=== PATIENT | male | born 1985 | race Caucasian/White ===

== ENCOUNTER 2021-12-15 13:52 | Emergency (ER) | payer MEDICAID, MEDICARE ==
[~2021-12-15] VITALS: Ht 188 cm; Wt 84.0 kg
[2021-12-15] MEDS ORDERED: ALBU6.7H9 INH (15:40)
[2021-12-15] MEDS ORDERED: BUDE180A INH (15:40)
== END 2021-12-15 15:57 | disposition home or self-care (01) ==
LOC: ER 13:53
DX: J06.9 Acute upper respiratory infection, unspecified (principal); Z20.822 Contact with and (suspected) exposure to COVID-19; F17.200 Nicotine dependence, unspecified, uncomplicated; Z72.89 Other problems related to lifestyle; Z79.899 Other long term (current) drug therapy
CPT/HCPCS: 36415; 99283; U0003

== ENCOUNTER 2022-04-09 12:55 | Emergency (ER) | payer MEDICAID ==
[~2022-04-09] VITALS: Ht 188 cm; Wt 84.1 kg
[~2022-04-09 12:55] MED LIST: ALBU6.7H9 INH; BUDE180A INH
[2022-04-09] MEDS ORDERED: PENICILLIN G BENZATHINE 2,400,000 UNIT/4 ML SYRINGE IM ONE (14:50)
[2022-04-09] MEDS ORDERED: azithromycin 250mg tablet PO ONE (14:50)
[2022-04-09] MEDS ORDERED: CefTRIAXone 500MG IM Kit w/LIDOcaine IM ONE (14:50)
[2022-04-09] MEDS ORDERED: DOXY-1 PO (14:55)
[2022-04-09] MEDS ORDERED: CefTRIAXone 1000mg IM Kit (w/lidocaine diluent) IM ONE (15:05)
[2022-04-09 15:40] VITALS: BP 117/92
== END 2022-04-09 15:42 | disposition home or self-care (01) ==
LOC: ER 12:56
DX: A64 Unspecified sexually transmitted disease (principal); Z72.89 Other problems related to lifestyle; Z79.2 Long term (current) use of antibiotics; Z79.899 Other long term (current) drug therapy
CPT/HCPCS: 36415; 86592; 87491; 87591; 96372; 99284; J0561; J0696

== ENCOUNTER 2022-08-19 16:58 | Emergency (ER) | payer MEDICAID ==
[~2022-08-19] VITALS: Ht 188 cm; Wt 86.4 kg
[~2022-08-19 16:58] MED LIST changes: +ALBU6.7H14 INH; -ALBU6.7H9 INH
[2022-08-19 17:04] VITALS: BP 141/72
[2022-08-19] MEDS ORDERED: CefTRIAXone 1000mg IM Kit (w/lidocaine diluent) IM STA (18:09)
[2022-08-19] MEDS ORDERED: PENICILLIN G BENZATHINE 2,400,000 UNIT/4 ML SYRINGE IM STA (18:09)
[2022-08-19] MEDS ORDERED: azithromycin 250mg tablet PO ONE (18:10)
[2022-08-19] MEDS ORDERED: DOXY-1 PO ×3 (18:21→19:07)
== END 2022-08-19 19:28 | disposition home or self-care (01) ==
LOC: ER 17:00
DX: A53.9 Syphilis, unspecified (principal); A74.9 Chlamydial infection, unspecified
CPT/HCPCS: 36415; 86592; 86780; 87491; 87591; 96372; 99284; J0561; J0696

== ENCOUNTER 2023-09-25 09:46 | Emergency (ER) | payer MEDICAID ==
[~2023-09-25] VITALS: Ht 188 cm; Wt 84.5 kg
[~2023-09-25 09:46] MED LIST changes: +DOXY-1 PO
[2023-09-25 09:52] VITALS: BP 119/78; PULSE 82; RESP 16; TEMP 97.7; O2SAT 99
[2023-09-25] MEDS ORDERED: POLOS LEFTEYE (09:59)
== END 2023-09-25 10:20 | disposition home or self-care (01) ==
LOC: ER 09:47
DX: H10.9 Unspecified conjunctivitis (principal); Z72.89 Other problems related to lifestyle; Z98.890 Other specified postprocedural states; Z79.899 Other long term (current) drug therapy
CPT/HCPCS: 99284

== ENCOUNTER 2023-11-16 09:56 | Emergency (ER) | payer MEDICAID ==
[~2023-11-16] VITALS: Ht 185.4 cm; Wt 86.9 kg
[2023-11-16] MEDS ORDERED: CEFD300C3 PO (11:31)
[2023-11-16 11:40] VITALS: BP 115/79; PULSE 93; RESP 17; TEMP 99.5; O2SAT 99
== END 2023-11-16 12:30 | disposition home or self-care (01) ==
LOC: ER 09:56
DX: J40 Bronchitis, not specified as acute or chronic (principal); F20.9 Schizophrenia, unspecified; Z79.899 Other long term (current) drug therapy
CPT/HCPCS: 99283

== ENCOUNTER 2024-03-28 23:38 | Emergency (ER) | payer MEDICAID ==
[~2024-03-28] VITALS: Ht 185.4 cm; Wt 84.6 kg
[2024-03-28 23:41] VITALS: BP 112/61; TEMP 97.6
[2024-03-29] MEDS: normal saline 1000ml 1,000 ML IV ONE (00:15)
[2024-03-29] MEDS: ceFAZolin/D5W- 1GM premix 50 ML IV ONE (00:15)
[2024-03-29] MEDS: ondansetron/PF 4mg/2ml inj IV ONE (00:24)
[2024-03-29] MEDS: morphine 4 MG/ML inj SYRINge IV ONE (00:24)
[2024-03-29] MEDS: TETanus/Pertussis (Acell)/Diphther VAC/PF (Tdap-Adult) 0.5ml syringe IMVAC ONE (00:25)
[2024-03-29 00:54] LABS: BASOPHILS # (AUTO) 0.1 X10'3 (0-0.2); BASOPHILS % (AUTO) 0.7 % (0-1); EOSINOPHILS # (AUTO) 0.1 X10'3 (0-0.9); EOSINOPHILS % (AUTO) 0.7 % (0-6); HEMOGLOBIN 15.2 g/dl (14.0-17.9); LYMPHOCYTES # (AUTO) 1.7 X10'3 (1.1-4.8); LYMPHOCYTES % (AUTO) 17.4 % (21-51); MEAN CORPUSCULAR HEMOGLOBIN 31.2 PG (27.0-31.0); MEAN CORPUSCULAR HGB CONC 35.4 g/dL (33.0-36.5); MEAN CORPUSCULAR VOLUME 88.1 FL (78-98); MEAN PLATELET VOLUME 9.9 FL (7.4-10.4); MONOCYTES # (AUTO) 0.9 X10'3 (0-0.9); MONOCYTES % (AUTO) 9.1 % (2-12); NEUTROPHILS # (AUTO) 6.9 X10'3 (1.8-7.7); NEUTROPHILS % (AUTO) 72.1 % (42-75); PLATELET COUNT 156 X10'3 (140-440); RED BLOOD COUNT 4.88 X10'6 (4.70-6.10); WHITE BLOOD COUNT 9.5 X10'3 (4.5-11.0)
[2024-03-29 01:04] LABS: APTT 22 SECONDS (22-32); INR 1.1 INR; PROTHROMBIN TIME 11.4 SECONDS (9.0-12.0)
[2024-03-29 01:08] LABS: ETHANOL 65 MG/DL (<10); LIPASE 54 U/L (16-77)
[2024-03-29 02:36] LABS: BILIRUBIN,URINE NEGATIVE (Neg); CLARITY,URINE SLIGHTLY CLOUDY (Clear); COLOR,URINE YELLOW (Yellow); GLUCOSE, URINE NEGATIVE (Neg); KETONES,URINE NEGATIVE (Neg); LEUKOCYTE ESTERASE ,URINE NEGATIVE (Neg); NITRITES, URINE NEGATIVE (Neg); OCCULT BLOOD,URINE MODERATE (Neg); PROTEIN,URINE TRACE mg/dl (Neg); UROBILINOGEN,URINE 0.2 E.U/dL (0.2-1.0)
[2024-03-29 02:56] LABS: URINE AMPHETAMINE SCREEN NEGATIVE (Neg); URINE BARBITUATE SCREEN NEGATIVE (Neg); URINE BENZODIAZEPINES SCREEN NEGATIVE (Neg); URINE CANNABINOID SCREEN NEGATIVE (Neg); URINE COCAINE SCREEN NEGATIVE (Neg); URINE METHADONE SCREEN NEGATIVE (Neg); URINE OPIATE SCREEN POSITIVE (Neg); URINE PHENCYCLIDINE SCREEN NEGATIVE (Neg)
[2024-03-29 03:03] LABS: UA COLLECTION TYPE URINAL
[2024-03-29 03:04] LABS: CAL OXALATE CRYSTALS 2+ /HPF (NEGATIVE); WBC,URINE 0-4 /HPF (0-4)
[2024-03-29 03:05] LABS: BACTERIA,URINE FEW /HPF (Neg); SQUAMOUS EPITHELIAL CELL,UR FEW /LPF (FEW)
[2024-03-29] MEDS ORDERED: HYDR-3965 PO (03:05)
[2024-03-29] MEDS ORDERED: CEPH-585 PO (03:05)
[2024-03-29 03:20] VITALS: PULSE 86; RESP 16; O2SAT 98
[2024-03-29 06:17] LABS: ALANINE AMINOTRANSFERASE 16 U/L (12-78); ALBUMIN 4.2 G/DL (3.4-5.0); ALBUMIN/GLOBULIN RATIO 1.4 (1.1-1.5); ALKALINE PHOSPHATASE 47 IU/L (46-116); ANION GAP 9 (8-16); ASPARTATE AMINO TRANSFERASE 24 U/L (10-37); BILIRUBIN,TOTAL 0.7 MG/DL (0.1-1.0); BLOOD UREA NITROGEN 9 MG/DL (7-18); BUN/CREATININE RATIO 9.3 (10.0-20.0); CALCIUM 8.8 MG/DL (8.5-10.1); CHLORIDE 103 MMOL/L (99-107); CREATININE 0.97 MG/DL (0.60-1.10); GLUCOSE 119 MG/DL (70-104); SODIUM 138 MMOL/L (135-145); TOTAL CARBON DIOXIDE 25.7 MMOL/L (24-32); TOTAL PROTEIN 7.3 G/DL (6.4-8.2); eCRCL 118 ML/MIN; eGFR 87 ML/MIN
[2024-03-29 06:33] LABS: POTASSIUM 2.9 MMOL/L (3.5-5.1)
== END 2024-03-29 03:00 | disposition home or self-care (01) ==
LOC: ER 23:39
DX: S02.32XA Fracture of orbital floor, left side, initial encounter for closed fracture (principal); S02.2XXA Fracture of nasal bones, initial encounter for closed fracture; S02.40FA Zygomatic fracture, left side, initial encounter for closed fracture; S32.019A Unspecified fracture of first lumbar vertebra, initial encounter for closed fracture; S00.12XA Contusion of left eyelid and periocular area, initial encounter; Z72.89 Other problems related to lifestyle; Z72.9 Problem related to lifestyle, unspecified; Z79.899 Other long term (current) drug therapy; Z23 Encounter for immunization; Y04.8XXA Assault by other bodily force, initial encounter; Y93.89 Activity, other specified; Y92.89 Other specified places as the place of occurrence of the external cause; Y99.8 Other external cause status
CPT/HCPCS: 12013; 36415; 70450; 70486; 71260; 72125; 74177; 80053; 80305; 80320; 81001; 83690; 84484; 85025; 85610; 85730; 86885; 86900; 86901; 90471; 90715; 96365; 96375; 99285; J0690; J2270; J2405; J7030

== ENCOUNTER 2024-04-06 14:31 | Emergency (ER) | payer MEDICARE, MEDICAID ==
[~2024-04-06] VITALS: Ht 188 cm; Wt 86.4 kg
[~2024-04-06 14:31] MED LIST changes: +CEPH-585 PO; +HYDR-3965 PO
[2024-04-06 15:17] VITALS: BP 120/69; PULSE 71; RESP 17; TEMP 98.2; O2SAT 97
== END 2024-04-06 17:37 | disposition home or self-care (01) ==
LOC: ER 14:31
DX: S01.112D Laceration without foreign body of left eyelid and periocular area, subsequent encounter (principal); X58.XXXD Exposure to other specified factors, subsequent encounter; F20.9 Schizophrenia, unspecified
CPT/HCPCS: 99281

== ENCOUNTER 2024-08-05 15:52 | Emergency (ER) | payer MEDICAID ==
[~2024-08-05] VITALS: Ht 188 cm; Wt 81.0 kg
[~2024-08-05 15:52] MED LIST changes: -CEPH-585 PO; -HYDR-3965 PO
[2024-08-05 17:04] VITALS: BP 133/101; PULSE 87; RESP 18; TEMP 98.4; O2SAT 99
== END 2024-08-05 17:05 | disposition home or self-care (01) ==
LOC: ER 15:53
DX: G44.009 Cluster headache syndrome, unspecified, not intractable (principal); F20.9 Schizophrenia, unspecified; Z79.899 Other long term (current) drug therapy; Z72.89 Other problems related to lifestyle; Z98.890 Other specified postprocedural states; Z79.51 Long term (current) use of inhaled steroids; Z79.1 Long term (current) use of non-steroidal anti-inflammatories (NSAID)
CPT/HCPCS: 99281

== ENCOUNTER 2025-01-01 15:58 | Emergency (ER) | payer MEDICAID ==
[~2025-01-01] VITALS: Ht 188 cm; Wt 77.8 kg
[~2025-01-01 15:58] MED LIST changes: -BUDE180A INH; +BUDE180A5 INH
[2025-01-01 16:06] VITALS: BP 122/87; PULSE 94; RESP 16; TEMP 98.3; O2SAT 98
== END 2025-01-01 17:47 | disposition home or self-care (01) ==
LOC: ER 15:58
DX: J06.9 Acute upper respiratory infection, unspecified (principal); F20.9 Schizophrenia, unspecified; F17.200 Nicotine dependence, unspecified, uncomplicated; Z79.899 Other long term (current) drug therapy
CPT/HCPCS: 71045; 87502; 87503; 99284

== ENCOUNTER 2025-02-23 18:35 | Emergency (ER) | payer MEDICAID ==
[~2025-02-23] VITALS: Ht 188 cm; Wt 81.8 kg
[2025-02-23 18:37] VITALS: BP 133/80; PULSE 83; RESP 18; TEMP 98.9; O2SAT 98
== END 2025-02-23 19:44 | disposition left against medical advice (07) ==
LOC: ER 18:35
DX: M25.511 Pain in right shoulder (principal); M25.522 Pain in left elbow; Z53.21 Procedure and treatment not carried out due to patient leaving prior to being seen by health care provider
CPT/HCPCS: 73030; 73080

== ENCOUNTER 2025-02-23 21:49 | Emergency (ER) | payer MEDICAID ==
[~2025-02-23] VITALS: Ht 188 cm; Wt 79.5 kg
[2025-02-23 21:56] VITALS: BP 116/80; PULSE 89; RESP 14; O2SAT 97
[2025-02-23 23:04] VITALS: TEMP 98
== END 2025-02-23 23:04 | disposition home or self-care (01) ==
LOC: ER 21:51
DX: S52.122A Displaced fracture of head of left radius, initial encounter for closed fracture (principal); F20.9 Schizophrenia, unspecified; V00.841A Fall from standing electric scooter, initial encounter; Y93.89 Activity, other specified; Y92.89 Other specified places as the place of occurrence of the external cause; Y99.8 Other external cause status
CPT/HCPCS: 29105; 99283; A4565; A6449

== ENCOUNTER 2025-04-29 20:30 | Emergency (ER) | payer MEDICAID ==
[~2025-04-29] VITALS: Ht 188 cm; Wt 78.7 kg
[2025-04-29 20:41] VITALS: BP 120/56; PULSE 73; RESP 14; O2SAT 99
[2025-04-29] MEDS: LIDOcaine 1% 30ml preserv. free vial IJ STA (21:21)
--- NOTE | 2025-04-29 21:40 | RADIOLOGY REPORT ---
CLINICAL INDICATION: HAND PAIN TECHNIQUE: 3 radiographic views of the left hand were obtained. Comparison: None FINDINGS/IMPRESSION: There is no evidence of acute fracture or dislocation. The visualized joint space is well maintained. The alignment is anatomical. 9 x 8 x 8 mm hyperdensity within the soft tissues posterior to the 3rd metacarpal base without signif icant adjacent soft tissue edema. Correlate for foreign body.
--- NOTE | 2025-04-29 22:43 | Physician Documentation ---
History of Present Illness ~ Chief Complaint: Hand pain Stated Complaint: HAND PAIN Time Seen by MD: 20:52 Primary Medical Doctor: Messi CASAS Patient is seen today with complaints of laceration to his left long finger after smelling she got between a cinder block in a tree. Patient states he has good range of motion of his finger still and has no other concern or complaint at this time. Tetanus within 5 years: Yes (LESS THAN FIVE YEARS AGO) Medication Reconciliation Allergies: Coded Allergies: No Known Allergies (Unverified , 08/05/24) Scheduled Albuterol Sulfate (Proventil Hfa), 2 PUFFS INH Q6H Budesonide (Pulmicort Flexhaler), 2 PUFFS INH Q12H Doxycycline Hyclate (Doxycycline Hyclate), 1 CAP PO Q12H Past Medical History Past Medical History: *MUSCULOSKELETAL*, Schizophrenia Past Surgical History: abdominal surgery, other Alcohol Use: Occasionally Drug Use: none Lives In: Home Review of Systems Constitutional: Denies: chills, fever, weakness Eyes: Denies: pain, blurred vision ENT: Denies: ear pain, nose pain, throat pain, mouth pain Respiratory: Denies: cough, shortness of breath Cardiovascular: Denies: chest pain, palpitations Gastrointestinal: Denies: abdominal pain, nausea, vomiting Genitourinary: Denies: burning, dysuria Male Genitalia: Denies: penile discharge, testicular pain Neurological: Denies: headache, dizziness Musculoskeletal: Denies: pain, swelling Integumentary: Denies: rash, lesions Allergic/Immunologic: Denies: hives, itching Hematologic/Lymphatic: Denies: no symptoms reported Psychiatric: Denies: depression, anxiety Physical Exam Vital Signs: Temperature: 97.3, Source: Temporal, Heart Rate: 73, Respiratory Rate: 14, BP: 120/56, Pulse Oximetry: 99, Weight: 78.700 Oxygen Flow Rate: 0 Physical Exam General: Awake and Alert, no acute distress. HEENT: Conjunctiva pink, Sclera clear, Mucus Membranes moist. Neck: Supple without masses and tenderness. Resp: Unlabored. Lungs clear to auscultation bilaterally. Heart: Regular Rate and rhythm, normal S1 and S2 without murmur, rub or gallop. Musculoskeletal: On exam patient is neurovascularly intact distally of the left long finger. Motor function intact distally. In flexion and extension motor function intact. Patient does have a 3-1/2 cm laceration in crescent shape on the dorsum of the left long finger at the level of the PIP joint. Extremities: No cyanosis,clubbing or edema. Skin: Warm and Dry. Progress Results/Orders Results/Orders Completed Orders - SCARLETT REDDY Lidocaine 1% 30ml Vial (Xylocaine 1% Via (04/29/25 21:08) Vital Signs 04/29/25 20:41 Temp 97.3 Pulse 73 Resp 14 B/P (MAP) 120/56 Pulse Ox 99 O2 Flow Rate 0 EKG/XRAY/CT/US/VASC/MRI Bone/Soft Tissue X-Ray (Ext.) : Additional Comment X-ray of left hand interpreted by myself today shows no sign of acute fracture, bones in anatomic alignment, no osteolytic or blastic lesions. DIAGNOSTIC RADIOLOGY Patient: DEBBIE ROJAS Medical Record: [id number] [facility] 1985, Age: 39 Sex: Male Location: ER Patient Status: [facility] ER Service Date/Time: 04/29/252050 Ordering Physician: ROBERT THAYER MD Exam: HAND, COMPLETE (3VW MIN) CLINICAL INDICATION: HAND PAIN TECHNIQUE: 3 radiographic views of the left hand were obtained. Comparison: None FINDINGS/IMPRESSION: There is no evidence of acute fracture or dislocation. The visualized joint space is well maintained. The alignment is anatomical. 9 x 8 x 8 mm hyperdensity within the soft tissues posterior to the 3rd metacarpal base without significant adjacent soft tissue edema. Correlate for foreign body. Electronically Signed by:MEGAN ANGEL DO Date & Time: 04/29/252136 Dictated by: MEGAN ANGEL DO Dictation date and time: 04/29/252136 Primary Care Provider: NO PRIMARY CARE PROVIDER cc: ROBERT THAYER MD ~ Medical Decision Making Findings Patient is seen today with complaints of laceration to his left long finger after smelling she got between a cinder block in a tree. Patient states he has good range of motion of his finger still and has no other concern or complaint at this time. Patient did have laceration of dorsum of left long finger sutured today by myself using seven sutures. Some of them simple and four of them horizontal mattress sutures. Patient tolerated well. Patient will follow up in 7-10 days for suture removal either here or at his primary care provider. Patient will monitor closely for infection and will return to ED with any worsening, concerning or changing symptoms. Patient was given prophylactic dose of Bactrim DS in the ED tonight given the depth and severity of the skin injury. Prophylactic dose of Bactrim sent to patient's pharmacy to be taken as directed. Departure Disposition: 01 HOME / SELF CARE / HOMELESS Impression: Primary Impression: Finger laceration Qualified Codes: S61.213A - Laceration without foreign body of left middle finger without damage to nail, initial encounter Condition: Improved Discharge Instructions: Laceration Care, Adult, [id number] Additional Instructions: Patient did have laceration of dorsum of left long finger sutured today by myself using seven sutures. Some of them simple and four of them horizontal mattress sutures. Patient tolerated well. Patient will follow up in 7-10 days for suture removal either here or at his primary care provider. Patient will monitor closely for infection and will return to ED with any worsening, concerning or changing symptoms. Patient was given prophylactic dose of Bactrim DS in the ED tonight given the depth and severity of the skin injury. Prophylactic dose of Bactrim sent to patient's pharmacy to be taken as directed. Referrals: NO PRIMARY CARE PROVIDER (PCP) Prescriptions Sulfamethoxazole/Trimethoprim (Bactrim Ds Tablet) 800 Mg-160 Mg Tablet 1 TAB PO Q12H for 3 Days, #6 TAB Prov: SCARLETT REDDY 04/29/25 Signature Scribe Signature: No scribe Attestation: No scribe SCARLETT REDDY Apr 29, 2025 22:43
[2025-04-29 22:51] VITALS: TEMP 97.3
[2025-04-29] MEDS ORDERED: SULF1TAB49 PO (22:58)
[2025-04-29] MEDS: sulfamethoxazole/trimethoprim DS (800/160mg) tablet PO STA (23:01)
== END 2025-04-29 23:03 | disposition home or self-care (01) ==
LOC: ER 20:31
DX: S61.213A Laceration without foreign body of left middle finger without damage to nail, initial encounter (principal); F20.9 Schizophrenia, unspecified; Z79.899 Other long term (current) drug therapy; Z72.89 Other problems related to lifestyle; X58.XXXA Exposure to other specified factors, initial encounter; Y93.89 Activity, other specified; Y92.89 Other specified places as the place of occurrence of the external cause; Y99.8 Other external cause status
CPT/HCPCS: 12002; 73130; 99283; J7030; A6258; A6449